=== PATIENT | female | born 1985 | race Caucasian/White ===

== ENCOUNTER 2018-03-26 03:10 | Emergency (ER) | payer OTHER ==
[~2018-03-26] VITALS: Ht 157.5 cm; Wt 88.9 kg
[2018-03-26 03:17] VITALS: Ht 157.5 cm; Wt 88.9 kg
[2018-03-26 04:05] VITALS: BP 113/73
== END 2018-03-26 04:05 | disposition home or self-care (01) ==
LOC: ED 03:10
DX: B37.9 Candidiasis, unspecified (principal); N64.52 Nipple discharge; Z90.09 Acquired absence of other part of head and neck

== ENCOUNTER 2018-05-23 04:20 | Emergency (ER) | payer OTHER ==
[~2018-05-23] VITALS: Ht 157.5 cm; Wt 88.5 kg
[2018-05-23 04:27] VITALS: Ht 157.5 cm; Wt 88.5 kg
[2018-05-23 06:15] VITALS: BP 111/64
== END 2018-05-23 06:15 | disposition home or self-care (01) ==
LOC: ED 04:20
DX: M54.5 Low back pain (principal); Z90.89 Acquired absence of other organs; Z90.49 Acquired absence of other specified parts of digestive tract

== ENCOUNTER 2018-06-21 02:55 | Emergency (ER) | payer OTHER ==
[~2018-06-21] VITALS: Ht 157.5 cm; Wt 89.4 kg
[2018-06-21 03:07] VITALS: Ht 157.5 cm; Wt 89.4 kg
[2018-06-21 05:37] LABS: UA SPECIFIC GRAVITY >=1.030 (1.005-1.035); microscopic required? YES; urine erythrocyte 2+ (NEGATIVE)
[2018-06-21 06:06] VITALS: BP 132/65
== END 2018-06-21 06:06 | disposition home or self-care (01) ==
LOC: ED 02:55
PROVIDERS: Emergency Medicine
DX: M54.5 Low back pain (principal); Z90.89 Acquired absence of other organs
CPT/HCPCS: J2270

== ENCOUNTER 2018-08-02 08:26 | Emergency (ER) | payer OTHER ==
[~2018-08-02] VITALS: Ht 157.5 cm; Wt 86.2 kg
[2018-08-02 08:33] VITALS: Ht 157.5 cm; Wt 86.2 kg
[2018-08-02 09:03] LABS: CALCIUM 9.3 mg/dL (8.5-10.1); CARBON DIOXIDE 23.1 mmol/L (21-32); CHLORIDE SERUM 104 mmol/L (98-107); CREATININE SERUM 0.8 mg/dL (0.6-1.0); GFR1 > 60 mL/min; GLUCOSE SERUM 123 mg/dL (74-106); POTASSIUM SERUM 3.9 mmol/L (3.5-5.1); SODIUM SERUM 136 mmol/L (136-145)
[2018-08-02 09:04] LABS: BASOPHIL % 0.8 % (0-2); RED CELL DISTRIBUTION WIDTH 11.8 % (11.5-14.5)
[2018-08-02 09:15] LABS: PLATELET COUNT 409 x10^3mcL (130-400)
[2018-08-02 12:31] VITALS: BP 107/49
== END 2018-08-02 12:31 | disposition home or self-care (01) ==
LOC: ED 08:26
PROVIDERS: Emergency Medicine
DX: N20.0 Calculus of kidney (principal); N23 Unspecified renal colic; N83.201 Unspecified ovarian cyst, right side; Z90.89 Acquired absence of other organs; Z87.19 Personal history of other diseases of the digestive system
CPT/HCPCS: J1885; J2405; J3010; J7030

== ENCOUNTER 2018-12-13 01:58 | Emergency (ER) | payer OTHER ==
[~2018-12-13] VITALS: Ht 157.5 cm; Wt 91.6 kg
[2018-12-13 02:17] VITALS: Ht 157.5 cm; Wt 91.6 kg
[2018-12-13 05:49] VITALS: BP 127/80
== END 2018-12-13 05:49 | disposition home or self-care (01) ==
LOC: ED 01:58
DX: N64.52 Nipple discharge (principal)

== ENCOUNTER 2019-01-05 17:30 | Emergency (ER) | payer OTHER ==
[~2019-01-05] VITALS: Ht 157.5 cm; Wt 91.6 kg
[2019-01-05 17:47] VITALS: BP 98/51; Ht 157.5 cm; Wt 91.6 kg
== END 2019-01-05 18:52 | disposition home or self-care (01) ==
LOC: ED 17:30
DX: M79.645 Pain in left finger(s) (principal); Z98.890 Other specified postprocedural states

== ENCOUNTER 2019-04-16 23:20 | Emergency (ER) | payer OTHER ==
[~2019-04-16] VITALS: Ht 157.5 cm; Wt 88.9 kg
[2019-04-17 03:13] VITALS: BP 108/73
== END 2019-04-17 03:13 | disposition home or self-care (01) ==
LOC: ED 23:20
DX: T81.49XA Infection following a procedure, other surgical site, initial encounter (principal); Z90.11 Acquired absence of right breast and nipple; Z90.89 Acquired absence of other organs